=== PATIENT | female | born 1990 | race Caucasian/White ===

== ENCOUNTER 2019-11-27 00:56 | Emergency (ER) | payer MEDICAID ==
[~2019-11-27] VITALS: Ht 137.2 cm; Wt 71.0 kg
[2019-11-27 04:00] LABS: CHLORIDE 109 mEq/L (98-107)
[2019-11-27 04:01] LABS: EOSINOPHILS % 1.8 % (0.0-5.0); HEMATOCRIT. 41.2 % (36.0-48.0); HEMOGLOBIN. 13.7 g/dL (12.0-16.0); MEAN CORPUSCULAR HEMOGLOBIN 30.9 pg (28.0-32.0); MEAN CORPUSCULAR VOLUME 92.9 fL (81.0-99.0); MEAN PLATELET VOLUME 8.1 fl (7.4-10.4); MONOCYTES % 7.3 % (2.0-8.0); NEUTROPHILS % 51.9 % (40.0-76.0); PLATELET 264 x1000/uL (130-400); RED BLOOD CELL COUNT 4.43 mill/uL (4.2-5.4); RED CELL DISTRIBUTION WIDTH 13.9 % (11.6-14.6)
[2019-11-27 07:32] VITALS: BP 126/70
== END 2019-11-27 07:33 | disposition home or self-care (01) ==
LOC: ER 02:03
DX: R05 Cough (principal); R06.02 Shortness of breath; Q90.9 Down syndrome, unspecified; F84.0 Autistic disorder
CPT/HCPCS: 36415; 71045; 80053; 85025; 99284